=== PATIENT | male | born 2000 | race Caucasian/White ===

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

== ENCOUNTER 2019-03-05 12:12 | Emergency (ER) | payer OTHER ==
[~2019-03-05] VITALS: Ht 167.6 cm; Wt 79.4 kg
[2019-03-05] MEDS ORDERED: MOMENI (12:55)
== END 2019-03-05 13:05 | disposition home or self-care (01) ==
LOC: ER 12:12
DX: R04.0 Epistaxis (principal); F17.210 Nicotine dependence, cigarettes, uncomplicated
CPT/HCPCS: 99283